=== PATIENT | female | born 1955 | race Caucasian/White ===

== ENCOUNTER 2024-05-09 14:18 | Emergency (ER) | payer OTHER ==
[~2024-05-09] VITALS: Ht 160 cm; Wt 100.0 kg
[2024-05-09 14:26] VITALS: BP 135/71; PULSE 93; RESP 20; TEMP 98; O2SAT 94
== END 2024-05-09 15:00 | disposition left against medical advice (07) ==
LOC: ER 14:46
DX: N93.9 Abnormal uterine and vaginal bleeding, unspecified (principal); Z53.21 Procedure and treatment not carried out due to patient leaving prior to being seen by health care provider